=== PATIENT | male | born 1945 | race Caucasian/White ===

== ENCOUNTER 2018-05-28 05:09 | Inpatient (IN) ==
[2018-05-28] MEDS ORDERED: Sodium Chlor 0.9% Inj 73.07 ML, Ropivacaine 0.5% PF Inj 24.63 ML, Ketorolac Inj 30 MG, ... P-ARTICULR SCH ×5 (05:41)
[2018-05-28] MEDS ORDERED: Chlorhexidine 4% Topical 120 APPLIC/120 ML Bottle TOPICAL SCH (05:45)
[2018-05-28] MEDS ORDERED: Dexamethasone Inj 20 MG/5 ML Vial IV.PUSH PRN (05:49)
[2018-05-28] MEDS ORDERED: Metoprolol Tartrate 25 MG Tablet PO ONE (05:51)
[2018-05-28] MEDS ORDERED: Chlorhexidine Gluconate 2% 1 Pack (2 Cloths) TOPICAL ONE (05:51)
[2018-05-28] MEDS ORDERED: Dexamethasone PF Inj 10 MG/ML Vial ONE (05:56)
[2018-05-28] MEDS ORDERED: Vancomycin Inj 1,000 MG in Sodium Chlor 0.9% Inj 250 ML IV.SIG SCH (06:00)
[2018-05-28] MEDS ORDERED: ceFAZolin 2 GM Premix Inj 2 GM/50 ML PIGGYBACK IV.SIG SCH (06:00)
[2018-05-28] MEDS ORDERED: Sodium Chlor 0.9% Inj 500 ML IV.SIG SCH (06:00)
[2018-05-28] MEDS ORDERED: Tranexamic Acid Inj 1,400 MG in Sodium Chlor 0.9% Inj 100 ML IV.SIG SCH (06:00)
[2018-05-28] MEDS ORDERED: Bupivacaine Liposomal PF 1.3% Inj 20 ML Vial ONE (06:26)
[2018-05-28] MEDS ORDERED: Phenylephrine/NS 1000 MCG/10ML Syringe IV.PUSH ONE (06:47)
[2018-05-28] MEDS ORDERED: Neostigmine Inj 5 MG/5 ML Syringe IV.PUSH ONE (06:47)
[2018-05-28] MEDS ORDERED: Glycopyrrolate Inj 1 MG/5 ML Syringe IV.PUSH ONE (06:47)
[2018-05-28] MEDS ORDERED: Lidocaine PF 1% Inj 5 ML Syringe OTHER ONE (06:47)
--- NOTE | 2018-05-28 06:59 | P.DCO ---
- Physical Therapy Physical Therapy: Gait training, Transfer training, bed to chair Knee: Total knee, Protocol: Right Right Lower Extremity Weight Bearing: Weight bearing as tolerated Right Lower Extremity Range of Motion: Active ROM - Nursing Dressing changes: Do not change dressing Additional instructions: First dressing change in the office - Case Management Consult Case Management Consult-Home Health: Yes - Certification Need for Home Health services: I have seen patient Syed Christensen on 05/28/18. My clinical findings support the need for the requested home health care services because: Need for Home Health Services: Limited ability to care for self, High risk of falls Homebound Certification: I certify that my clinical findings support that this patient is homebound because: Homebound Certification: Post-op weakness, Unsteady gait/balance
[2018-05-28] MEDS ORDERED: Post-op Orders (for Pharmacy) OTHER STA (08:45)
[2018-05-28] MEDS ORDERED: Morphine Inj 4 MG/ML Vial IV.PUSH PRN (08:45)
[2018-05-28] MEDS ORDERED: Zolpidem Tartrate 5 MG Tablet PO PRN (08:45)
[2018-05-28] MEDS ORDERED: SODIUM CHLOR 0.9% IV.SIG ONE (08:45)
[2018-05-28] MEDS ORDERED: Bisacodyl 10 MG Supp RECTAL PRN (08:45)
[2018-05-28] MEDS ORDERED: TRANEXAMIC ACID IV.SIG ONE (08:45)
[2018-05-28] MEDS ORDERED: Aluminum/Magnesium/Simethacone Susp 30 ML UDC PO PRN (08:45)
--- NOTE | 2018-05-28 08:50 | P.OP ---
- Preoperative Diagnosis (1) Primary localized osteoarthritis of right knee - Postoperative Diagnosis (1) Primary localized osteoarthritis of right knee Date of procedure: 05/28/18 Procedure: Right total knee arthroplasty Anesthesia: GETA, [facility] Surgeon: Syed Rodriguez MD Report Programmer: ADRIEL Trinidad The surgical procedure was assisted by my Advanced Registered Nurse Practitioner. My EDITORIAL DIRECTOR presence was necessary throughout this case for the manipulation and positioning of the surgical extremity. My EDITORIAL DIRECTOR was assisting me throughout the duration of this procedure. The skill set of an Advance Registered Nurse Practitioner was medically necessary to complete this procedure. During the surgical case, the rn medical surgical was working at the back table and the Advance Registered Nurse Practitioner was directly assisting me. Operation and Findings: IMPLANTS: DePuy Attune: Patella: size 38. Femur, posterior stabilized size 8. Tibia, rotating platform size 8. Tibial insert, rotating platform, posterior stabilized size 6 mm thickness. ESTIMATED BLOOD LOSS: 125 cc TOURNIQUET TIME: 52 minutes at 250 mmHg pressure. JUSTIFICATION FOR PROCEDURE: The patient has end-stage osteoarthritis to the knee. There is an attached conservative measures pathway form in the chart that describes the nonoperative measures that were undertaken prior to consideration of surgical management. The patient understood the risks and benefits of surgical management. See my office notes for further details PROCEDURE: The patient was brought back to the operative theatre. Adequate anesthesia was obtained. The patient received intravenous Ancef and vancomycin. The lower extremity was prepped and draped in the usual sterile fashion.The leg was exsanguinated, the tourniquet was raised. A standard anterior incision was performed followed by medial parapatellar arthrotomy was performed. End-stage arthritis was identified. Osteotomy of the patella was performed. We drilled holes for the patella. We trialed the patella component. We placed an intramedullary guide into the distal femur. We ultimately resected 13 mm off of the distal femur in 5 degrees of valgus. The remnants of the ACL and PCL were resected. Osteotomy of the proximal tibia was performed, resecting 5 mm off of the medial side. This was done with 3 degrees of posterior slope using an extramedullary guide. The distal end of the guide was placed in the mid aspect of the ankle. The femur was sized, and four chamfer cuts were completed in 3 of external rotation. We then cut the central box in the distal femur to replace the PCL. We resected the remnants of the menisci and removed osteophytes off of the femur and tibia. We then trialed the knee. We punched the tibia for the keel, and then used standard technique to cement in components. Excess cement was removed. We trialed the knee again and the final polyethylene thickness was chosen to provide extension to 0 degrees, and flexion of 140 degrees to gravity. The ligaments were appropriately balanced. Lateral release was necessary to obtain excellent patellofemoral tracking. The tourniquet was released and adequate hemostasis was obtained. An intra- articular injection of a ropivacaine cocktail was injected. The posterior knee was inspected for excess cement, which was removed. The final polyethylene was put into position after thorough irrigation. We then closed the arthrotomy site with a #2 Stratafix, followed by fascia with #2-0 Stratafix, followed by skin with 2-0 Vicryl followed by Dermabond dressing. Postop plan is to weight-bear as tolerated. DVT prophylaxis will be performed with SCDs, VAL rodrigues, early mobilization, and Eliquis at DVT prophylaxis dose while in the hospital with resumption of aspirin and then after discharge resumption of normal outpatient dose of Eliquis and aspirin.
[2018-05-28] MEDS: Furosemide 20 MG Tablet PO SCH (09:00)
[2018-05-28] MEDS ORDERED: fentaNYL Citrate Inj 100 MCG/2 ML Ampul ONE (09:20)
[2018-05-28] MEDS ORDERED: *morphine SULFATE 4 MG/ML PERIprocedure ONLY ONE (09:47)
[2018-05-28] MEDS: Sod Chloride 0.9% Inj 1,000 ML IV.CONT SCH ×2 (10:00→20:20)
[2018-05-28] MEDS: Metoprolol Tartrate 50 MG Tablet PO SCH ×3 (10:02→17:16)
[2018-05-28] MEDS: amLODIPine 5 MG Tablet PO SCH ×2 (10:02→20:19)
[2018-05-28] MEDS: Amiodarone 200 MG Tablet PO SCH (10:02)
[2018-05-28] MEDS: Multivitamin/Minerals Therapeutic Tablet PO SCH ×2 (10:03→20:19)
[2018-05-28] MEDS: Lisinopril 5 MG Tablet PO SCH ×2 (10:03→20:19)
[2018-05-28] MEDS: Senna/Docusate Sodium 8.6/50 MG Tablet PO SCH ×2 (10:03→20:20)
[2018-05-28] MEDS: Famotidine 20 MG Tablet PO SCH ×2 (10:03→20:19)
[2018-05-28] MEDS: glipiZIDE 5 MG Tablet PO SCH (10:08)
--- NOTE | 2018-05-28 11:06 | XR ---
EXAM DATE: 05/28/2018 10:46 AM EST AGE/SEX: 72 years / Male INDICATIONS: Post op right knee surgery. CLINICAL DATA: This is the patient's initial encounter. Patient reports that signs and symptoms have been present for 1 day and indicates a pain score of 2/10. MEDICAL/SURGICAL HISTORY: None. None. COMPARISON: No prior exams available for comparison. FINDINGS: AP and lateral views of the knee were obtained and demonstrate that the patient is status post arthro plasty. The tibial and femoral components are intact and in normal alignment. There are postoperative changes involving sella. There is anterior soft tissue swelling and gas. There is mild osteopenia. CONCLUSION: Expected operative changes status post arthroplasty. Electronically signed by: Peter Damon MD Board Certified Radiologist 05/28/2018 11:05 AM EST
[2018-05-28] MEDS: ceFAZolin Inj 1 GM in Sodium Chlor 0.9% Inj 100 ML IV.SIG SCH ×2 (12:50→19:17)
[2018-05-29] MEDS: ceFAZolin Inj 1 GM in Sodium Chlor 0.9% Inj 100 ML IV.SIG SCH (01:18)
[2018-05-29 04:54] LABS: Hematocrit 31.6 % (39.0-51.0); Hemoglobin 10.9 gm/dL (13.0-17.0)
[2018-05-29] MEDS: glipiZIDE 5 MG Tablet PO SCH (06:22)
--- NOTE | 2018-05-29 07:23 | P.PNOP ---
Subjective Interval history: The patient is out of bed in chair. The patient reports minimal pain to the right knee. The patient has not had to take any recent narcotics for pain. The patient is considering Tylenol for pain management. The patient is planning to go to [facility]. Physical Exam Vital signs: Vital Signs 05/28/18 09:15 05/28/18 09:30 05/28/18 09:45 Temperature 98.8 F Pulse Rate 56 L 55 L 53 L Respiratory Rate 14 16 20 Blood Pressure 106/57 L 117/60 119/68 Pulse Oximetry 92 L 93 L 94 L 05/28/18 10:00 05/28/18 10:15 05/28/18 19:15 Temperature 98.4 F 97.8 F Pulse Rate 52 L 54 L 66 Respiratory Rate 19 18 16 Blood Pressure 122/68 122/63 123/67 Pulse Oximetry 94 L 95 94 L 05/28/18 20:05 05/29/18 00:10 05/29/18 04:20 Temperature 97.5 F L 98.0 F Pulse Rate 62 57 L Respiratory Rate 16 17 Blood Pressure 108/59 L 104/57 L Pulse Oximetry 96 93 L 95 Intake & Output 05/28/18 05/29/18 05/29/18 18:59 06:59 18:59 Intake Total 2027.7 / 2027.7 2950 / 2950 Output Total 825 / 825 125 / 125 Balance 1202.7 / 1202.7 2825 / 2825 Weight 137 kg 137 kg Intake: IV 1627.7 / 1627.7 2200 / 2200 NS Inj 1,000 ML @ 80 mls/hr IV. 1999 CONT .[id number] [facility] Rx#:[id number] LR 1000 mL Inj 1,000 ML @ 30 1000 / 1000 mls/hr IV.SIG .Q24H [facility] Rx#: [id number] Cyklokapron Inj 1,370 MG In NS 227.7 / 227.7 Inj 100 ML @ 200 mls/hr IV.SIG ONCE ONE Rx#:[id number] Vancomycin Inj 1,000 MG In NS 250 / 250 Inj 250 ML @ 250 mls/hr IV.SIG BOTANICAL TECHNICAL OFFICER [facility] Rx#:[id number] Ancef 2 GM Premix Inj 2 gm In 50 / 50 50 ml @ 100 mls/hr IV.SIG BOTANICAL TECHNICAL OFFICER [facility] Rx#:[id number] Ancef Inj 1 GM In NS Inj 100 ML 100 / 100 200 / 200 @ 200 mls/hr IV.SIG Q6H [facility] Rx #:[id number] Oral 750 / 750 Anesthesia Amount 400 / 400 Output: Urine 125 / 125 Estimated Blood Loss 125 / 125 Urine Amount (Catheter) 700 / 700 Straight 700 / 700 Other: # Voids 2 Date of Last Bowel Movement 05/26/18 05/26/18 # Bowel Movements 0 Narrative: The patient's dressing is clean and intact. EHL/TA/G are intact. The patient has minimal bloody drainage on the dressing. 2+ pedal pulse. The patient's calf is soft and nontender. Sensation is intact to light touch distally. - Urinary Catheter Management Straight Cath placed during this visit: yes, but has since been removed by the nurse Reason for continuing: Not indwelling catheter Insertion date: 05/28/18 Insertion time: 18:00 Removal date: 05/28/18 Removal time: 18:08 Results - Labs CBC & Chem 7: 05/29/18 04:24 Laboratory Results - last 24 hr 05/28/18 05/28/18 05/29/18 05:50 20:08 04:24 Hgb 10.9 L Hct 31.6 L POC Glucose 384 H Blood Type O Positive Blood Type Recheck Required Antibody Screen Negative 05/29/18 06:21 Hgb Hct POC Glucose 259 H Blood Type Blood Type Recheck Antibody Screen - Imaging Impressions Knee X-Ray 05/28/18 08:45 CONCLUSION: Expected operative changes status post arthroplasty. - Procedures Right total knee arthroplasty Assessment and Plan - Problem List (1) Status post total knee replacement, right Code(s): Z96.651 - Presence of right artificial knee joint Status: Acute (2) Primary localized osteoarthritis of right knee Code(s): M17.11 - Unilateral primary osteoarthritis, right knee Status: Acute - Assessment and Plan POD #1: [Right] total knee arthroplasty 1. Weightbearing as tolerated on [right] lower extremity. 2. The patient will resume Eliquis at a modified dose while in the hospital and then will be discharged with his normal dose of Eliquis and aspirin for DVT prophylaxis. 3. Ice as needed for swelling. 4. Stable per ortho for discharge to [facility]. Discharge will likely be Saturday. 5. The patient will follow up with Dr. Rodriguez and/or ADRIEL Tobin as previously scheduled.
[2018-05-29] MEDS ORDERED: Dexamethasone Inj 20 MG/5 ML Vial IV.PUSH ONE (08:00)
[2018-05-29] MEDS: Amiodarone 200 MG Tablet PO SCH (08:44)
[2018-05-29] MEDS: Multivitamin/Minerals Therapeutic Tablet PO SCH ×2 (08:44→21:13)
[2018-05-29] MEDS: Furosemide 20 MG Tablet PO SCH (08:44)
[2018-05-29] MEDS: Lisinopril 5 MG Tablet PO SCH ×2 (08:44→21:12)
[2018-05-29] MEDS: Metoprolol Tartrate 50 MG Tablet PO SCH ×3 (08:44→17:21)
[2018-05-29] MEDS: Senna/Docusate Sodium 8.6/50 MG Tablet PO SCH ×2 (08:45→21:12)
[2018-05-29] MEDS: Famotidine 20 MG Tablet PO SCH ×2 (08:45→21:14)
[2018-05-29] MEDS: amLODIPine 5 MG Tablet PO SCH ×2 (10:28→21:13)
[2018-05-30] MEDS: glipiZIDE 5 MG Tablet PO SCH (06:14)
[2018-05-30 08:11] LABS: Hematocrit 31.1 % (39.0-51.0); Hemoglobin 10.7 gm/dL (13.0-17.0)
[2018-05-30] MEDS: Metoprolol Tartrate 50 MG Tablet PO SCH ×3 (09:10→17:31)
[2018-05-30] MEDS: Lisinopril 5 MG Tablet PO SCH ×2 (09:10→20:59)
[2018-05-30] MEDS: amLODIPine 5 MG Tablet PO SCH ×2 (09:10→20:59)
[2018-05-30] MEDS: Senna/Docusate Sodium 8.6/50 MG Tablet PO SCH ×2 (09:10→20:59)
[2018-05-30] MEDS: Multivitamin/Minerals Therapeutic Tablet PO SCH ×2 (09:11→20:59)
[2018-05-30] MEDS: Famotidine 20 MG Tablet PO SCH ×2 (09:11→20:59)
[2018-05-30] MEDS: Amiodarone 200 MG Tablet PO SCH (09:11)
[2018-05-30] MEDS: Furosemide 20 MG Tablet PO SCH (09:11)
--- NOTE | 2018-05-30 14:31 | P.PNOP ---
Subjective Interval history: The patient is out of bed in chair with minimal pain to the right knee. The patient states his pain has improved since surgery. Physical Exam Vital signs: Vital Signs 05/29/18 16:27 05/29/18 16:32 05/29/18 19:15 Temperature 97.5 F L 97.3 F L Pulse Rate 57 L 55 L Respiratory Rate 22 18 18 Blood Pressure 122/59 L 110/81 Pulse Oximetry 95 94 L 05/30/18 00:20 05/30/18 08:00 05/30/18 09:10 Temperature 97.1 F L 98.0 F Pulse Rate 54 L 56 L 60 Respiratory Rate 18 19 Blood Pressure 126/70 106/51 L 122/68 Pulse Oximetry 94 L 95 05/30/18 12:31 Temperature Pulse Rate Respiratory Rate 18 Blood Pressure Pulse Oximetry Intake & Output 05/29/18 05/30/18 05/30/18 18:59 06:59 18:59 Intake Total 1290 / 1290 540 / 540 Output Total 1200 / 1200 250 / 250 Balance 90 / 90 290 / 290 Weight 137 kg Intake: Oral 1290 / 1290 540 / 540 Output: Urine 1200 / 1200 250 / 250 Other: # Voids 1 Date of Last Bowel Movement 05/26/18 05/30/18 05/30/18 # Bowel Movements 0 1 Narrative: The patient's dressing is clean and intact. EHL/TA/G are intact. The patient has minimal bloody drainage on the dressing. 2+ pedal pulse. The patient's calf is soft and nontender. Sensation is intact to light touch distally. - Urinary Catheter Management Straight Cath placed during this visit: yes, but has since been removed by the nurse Reason for continuing: Not indwelling catheter Insertion date: 05/28/18 Insertion time: 18:00 Removal date: 05/28/18 Removal time: 18:08 Results - Labs CBC & Chem 7: 05/30/18 07:52 Laboratory Results - last 24 hr 05/29/18 05/30/18 05/30/18 20:12 06:10 07:52 Hgb 10.7 L Hct 31.1 L POC Glucose 283 H 249 H - Procedures Right total knee arthroplasty Assessment and Plan - Problem List (1) Status post total knee replacement, right Code(s): Z96.651 - Presence of right artificial knee joint Status: Acute (2) Primary localized osteoarthritis of right knee Code(s): M17.11 - Unilateral primary osteoarthritis, right knee Status: Acute - Assessment and Plan POD #2: [Right] total knee arthroplasty 1. Weightbearing as tolerated on [right] lower extremity. 2. The patient will resume Eliquis at a modified dose while in the hospital and then will be discharged with his normal dose of Eliquis and aspirin for DVT prophylaxis. 3. Ice as needed for swelling. 4. Stable per ortho for discharge to [facility]. Discharge will likely be Saturday. 5. The patient will follow up with Dr. Rodriguez and/or ADRIEL Tobin as previously scheduled. 6. [place] for pain management. RX on chart. 3008 complete and on chart.
[2018-05-31] MEDS: glipiZIDE 5 MG Tablet PO SCH (06:07)
--- NOTE | 2018-05-31 06:43 | P.PNOP ---
Subjective Interval history: Sitting in chair bedside. States the knee is continue to improve. Still has some weakness and some swelling. Is anticipating discharge to [facility] today Physical Exam Vital signs: Vital Signs 05/30/18 08:00 05/30/18 09:10 05/30/18 12:00 Temperature 98.0 F 97.6 F Pulse Rate 56 L 60 59 L Respiratory Rate 19 20 Blood Pressure 106/51 L 122/68 116/57 L Pulse Oximetry 95 94 L 05/30/18 12:31 05/30/18 16:00 05/30/18 18:18 Temperature 97.2 F L Pulse Rate 58 L Respiratory Rate 18 18 Blood Pressure 126/61 Pulse Oximetry 95 05/30/18 20:06 05/31/18 00:00 Temperature 98.2 F 98.2 F Pulse Rate 59 L 56 L Respiratory Rate 19 18 Blood Pressure 133/61 126/63 Pulse Oximetry 95 96 Intake & Output 05/30/18 05/30/18 05/31/18 06:59 18:59 06:59 Intake Total 540 / 540 1800 / 1800 Output Total 250 / 250 Balance 290 / 290 1800 / 1800 Weight 137 kg 145.7 kg Intake: Oral 540 / 540 1800 / 1800 Output: Urine 250 / 250 Other: # Voids 1 4 2 Date of Last Bowel Movement 05/30/18 05/30/18 05/30/18 # Bowel Movements 1 4 Narrative: Right lower extremity: No pain with hip or ankle range of motion. Knee dressing with minimal drainage. Active dorsiflexion plantar flexion of foot. Active movement of knee. Intact distal pulses and good capillary refills - Urinary Catheter Management Straight Cath placed during this visit: yes, but has since been removed by the nurse Reason for continuing: Not indwelling catheter Insertion date: 05/28/18 Insertion time: 18:00 Removal date: 05/28/18 Removal time: 18:08 Results - Labs CBC & Chem 7: 05/30/18 07:52 Laboratory Results - last 24 hr 05/30/18 07:52 Hgb 10.7 L Hct 31.1 L - Procedures Right total knee arthroplasty Assessment and Plan - Problem List (1) Status post total knee replacement, right Code(s): Z96.651 - Presence of right artificial knee joint Status: Acute (2) Primary localized osteoarthritis of right knee Code(s): M17.11 - Unilateral primary osteoarthritis, right knee Status: Acute - Assessment and Plan POD #3: [Right] total knee arthroplasty 1. Weightbearing as tolerated on [right] lower extremity. 2. The patient will resume Eliquis at a modified dose while in the hospital and then will be discharged with his normal dose of Eliquis and aspirin for DVT prophylaxis. 3. Ice as needed for swelling. 4. Stable per ortho for discharge to [facility]. Discharge will likely be Saturday. 5. The patient will follow up with Dr. Rodriguez and/or ADRIEL Tobin as previously scheduled. 6. [place] for pain management. RX on chart. 3008 complete and on chart.
[2018-05-31] MEDS: Lisinopril 5 MG Tablet PO SCH (08:07)
[2018-05-31] MEDS: Amiodarone 200 MG Tablet PO SCH (08:07)
[2018-05-31] MEDS: amLODIPine 5 MG Tablet PO SCH (08:07)
[2018-05-31] MEDS: Furosemide 20 MG Tablet PO SCH (08:07)
[2018-05-31] MEDS: Multivitamin/Minerals Therapeutic Tablet PO SCH (08:08)
[2018-05-31] MEDS: Famotidine 20 MG Tablet PO SCH (08:08)
[2018-05-31] MEDS: Senna/Docusate Sodium 8.6/50 MG Tablet PO SCH (08:08)
[2018-05-31] MEDS: Metoprolol Tartrate 50 MG Tablet PO SCH ×2 (08:08→12:19)
--- NOTE | 2018-06-03 16:53 | P.DS ---
Date of admission: 05/28/18 08:45 Primary care physician: Silvestre Alcantar Attending physician on discharge: Syed Cordova Anticipated date of discharge: 05/31/18 Brief History from admission: The patient was admitted to the hospital for severe osteoarthritis of the RIGHT knee to have a RIGHT total knee arthroplasty. DS: Diagnosis - Discharge Diagnosis (1) Status post total knee replacement, right Status: Acute (2) Primary localized osteoarthritis of right knee Status: Acute DS: Medications - Discharge Medications Prescriptions: hydrocodone-acetaminophen [[place]] 1 - 2 tab PO Q4-6H #50 tab DS: Summary Hospital Course: The patient was admitted to the hospital for severe osteoarthritis of the [right ] knee to have a [right] total knee arthroplasty. The patient's surgery went well with no complication. The patient is on a [diabetic] diet. The patient's DVT prophylaxis includes use of [Eliquis at DVT prophylaxis dose while in the hospital with resumption of aspirin and then after discharge resumption of normal outpatient dose of Eliquis and aspirin.]. The patient is weightbearing as tolerated. The patient was discharged [to [facility]] and will follow up in the office with Dr. Cordova and/or ADRIEL Tobin as previously scheduled. - Time Spent with Patient Total time spent providing and/or coordinating discharge services: Greater than 30 minutes - Quality: VTE Deep Vein Thrombosis/Pulmonary Embolism Present on Admission: No Exam Narrative: The patient's dressing is clean and intact. EHL/TA/G are intact. The patient has minimal bloody drainage on the dressing. 2+ pedal pulse. The patient's calf is soft and nontender. Sensation is intact to light touch distally. Results Procedures completed during hospitalization: Right total knee arthroplasty - Impressions ITS Impressions Knee X-Ray 05/28/18 08:45 CONCLUSION: Expected operative changes status post arthroplasty. Discharge Plan - Discharge Disposition Patient Disposition: 03 Discharge to SNF - Discharge Order Discharge Orders: Discharge Order (Routine); Ordered 05/28/18 Ordered By: Yung Atkins - Discharge Details Anticipated Discharge Date: 05/31/18 - Physicians Team Primary Care Provider: Silvestre Alcantar Attending Provider: Syed Cordova Other Providers: [facility] - Rxs /Orders / Referrals /Forms Prescriptions: New dexamethasone sodium phosphate 4 mg/mL Solution 10 mg IV.PUSH FLOWER GRADER PRN (Reason: PRE-OP GIVE FLOWER GRADER TO OR) RF: 0 hydrocodone-acetaminophen [[place]] 5-325 mg Tablet 1 - 2 tab PO Q4-6H Qty: 50 RF: 0 Continue amiodarone 200 mg Tablet 200 mg PO DAILY amlodipine 5 mg Tablet 5 mg PO BID apixaban [Eliquis] 5 mg Tablet 5 mg PO BID ascorbic acid (vitamin C) [Vitamin C] 500 mg Tablet Extended Release 500 mg PO DAILY aspirin [Aspirin Low Dose] 81 mg Tablet,Delayed Release (Dr/Ec) 81 mg PO DAILY cholecalciferol (vitamin D3) [Vitamin D3] 1,000 unit Capsule 1,000 unit PO DAILY fish oil-dha-epa 1,200-144-216 mg Capsule 1 cap PO BID furosemide 20 mg Tablet 20 mg PO DAILY glipizide 2.5 mg Tablet Extended Release 24hr 2.5 mg PO DAILY glucosamine sulfate [Glucosamine] 500 mg Tablet 100 mg PO DAILY glycopyrrolate 1 mg Tablet 1 mg PO BID lisinopril 5 mg Tablet 5 mg PO BID metformin 1,000 mg Tablet 1,000 mg PO BID metoprolol tartrate 25 mg Tablet 50 mg PO TID [id number] [Daily Multivitamin] 200-100-500 mcg Capsule 1 tab PO DAILY ranitidine HCl 150 mg Tablet 150 mg PO BID simvastatin 10 mg Tablet 50 mg PO QPM Discontinued naproxen sodium [Aleve] 220 mg Capsule 220 mg PO DAILY Ambulatory Orders / Order Sets / DME: Adjustable Commode 3-in-1 (1 each) (Routine) Location: Determined by Patient Ordered By: Yung Atkins CPM - Continuous Passive Motion Machine (1 each) (Routine) Location: Determined by Patient Ordered By: Yung Atkins Walker With Front Wheels (1 each) (Routine) Location: Determined by Patient Ordered By: Yung Atkins Referrals: Syed Cordova MD [Physician] - See Instructions (F/U in the office as previously scheduled with Dr. Cordova or Malik Atkins, [facility]) Silvestre Alcantar MD [Primary Care Provider] - See Instructions - Discharge Instructions Patient Printed Instructions: Fall Prevention (DC), Knee Replacement (DC), Deep Vein Thrombosis Prevention (DC) Additional Instructions: DO NOT REMOVE DRESSING- FIRST DRESSING CHANGE TO BE DONE IN OFFICE FOLLOW UP WITH DR CORDOVA OR MALIK MOREL SCHEDULED WEIGHT BEARING TOLERATED TAKE MEDICATIONS PRESCRIBED - Post Discharge Care Plan Care Plan Goals: Discharge Care Plan Goals for Total Knee Replacement You have undergone knee replacement surgery. Your doctor replaced your painful joint with an artificial joint to relieve pain and restore movement. Here are some goals to help you heal well. Directions to Meet your Goals: 1. Activity & Exercises: * Take pain medicine as directed by your doctor. * Sit in chairs with arms. The arms make it easier for you to stand up or sit down. * Dont sit for more than 30 to 45 minutes at one time. * Nap if you are tired, but dont stay in bed all day. * Sleep with a pillow under your ankle, not your knee. Be sure to change the position of your leg during the night. * Wear the support stockings you were given in the hospital as directed by your surgeon. 2. Prevent Falls/Injury: The eddy to successful recovery is movement with walking and exercising your knee as directed by your doctor. * Arrange your household to keep the items you need handy. Keep everything else out of the way. * Remove items that may cause you to fall, such as throw rugs and electrical cords. * Use nonslip bath mats, grab bars, an elevated toilet seat, and a shower chair in your bathroom * Sit on a shower stool or chair when you shower to keep from falling. * Until your balance, flexibility, and strength improve, use a cane, crutches, a walker, handrails, or someone to help you. * Keep your hands free by using a backpack, estelle pack, apron, or pockets to carry things * Walk up and down stairs with support. Try one step at a time. Use the railing if possible. * Dont drive until your doctor says its OK. * Dont drive while you are taking opioid pain medicine. 3. Precautions: * Prevent infection. Any infection will need to be treated immediately. Call your doctor right away if you think you might have an infection. * Tell your dentist that you have an artificial joint and take antibiotics as prescribed before any dental work. * Tell all your healthcare providers about your artificial joint before any medical procedure. * Maintain a healthy weight. Get help to lose any extra pounds. Added body weight puts stress on the knee. * Your medications may include blood-thinning medicine to prevent blood clots or antibiotics to prevent infection-prevent any falls or cuts 4. Incision Care: * Prevent infection by washing your hands often. If an infection occurs, it will need to be treated right away. * Call your doctor right away if you think you may have an infection. Symptoms include a fever or an incision that leaks white, green, or yellow fluid. * Don't soak your incision in water until your doctor says its OK. This means no hot tubs, bathtubs, or swimming pools. * Follow your doctor's instructions for changing the dressing. * Dont rub the incision, or apply creams or lotions to it. * If you notice any redness or drainage around the bandage site, contact your surgeon's office immediately. 5. Follow-Up: Do Not miss your follow-up appointment. Keep up with all your appointments and yearly check ups When to call your doctor: Call your doctor right away if you have: Fever of 100.4F (38C) or higher, or as directed by your doctor Shaking chills Stiffness, or inability to move the knee Increased swelling in your leg Increased redness, tenderness, or swelling in or around the knee incision Drainage from the knee incision Increased knee pain Call 911: Call 911 right away if you have: Chest pain Shortness of breath Any pain or tenderness in your calf
== END 2018-05-31 16:26 | DRG 470 ==
LOC: HSDC 05:09 → EDSTATUS 07:00 → HSDI 08:45 → N06 10:59
PROVIDERS: ADMIT Orthopaedic Surgery; ATTEND Orthopaedic Surgery
CPT/HCPCS: 73560; 82948; 82962; 85014; 85018; 86850; 86900; 86901; 94150; 97110; 97116; 97150; 97162; C1776; C9290; J0131; J0690; J1100; J1580; J2250; J2270; J2370; J2405; J2704; J2710; J3010; J3370; J7030; J7050; J7120; L1830